=== PATIENT | male | born 1940 | race Caucasian/White ===

== ENCOUNTER → 2016-12-19 | Outpatient (CLI) | payer OTHER ==
[~2016-12-19] MED LIST: ZOCOR PO; [UNRECOGNIZED DRUG - REMARK]
--- NOTE | ~2016-12-19 | CT3 ---
[facility] A Service of [facility] RADIOLOGY TEXT RESULTS PATIENT: LENIN HAMMER LOCATION: [facility] : 36 UNIT #: [id number] AGE: [address]: Jay Jay Christopher MD SEX: M ORDER DR: [id number] [facility] [address] [place], [place] [address] [id number] O MR#: [id number] Acc #: [id number] NAME: LENIN HAMMER : 1940 SEX: M STUDY DATE/TIME: 12/19/2016 11:06 UNIT: CCAT ROOM: STUDY DESCRIPTION: CT Abd and Pelv WWo Cont Attending Physician: Jay Jay Christopher M.D. Referring Physician: Jay Jay Christopher M.D. Ordering Physician: Jay Jay Christopher M.D. Primary Care Physician: Brandon Maldonado M.D. MEDICAL IMAGING REPORT This report is preliminary unless electronic signature is present EXAM CT of the abdomen and pelvis without and with contrast, 12/19/2016. INDICATIONS Prostate cancer follow up. Hematuria 1 month ago. Prostate cancer diagnosed in 2005, status post prostatectomy. Status post radiation therapy. TECHNIQUE Noncontrast imaging of the abdomen and pelvis was performed followed by contrast-enhanced imaging of the abdomen and pelvis. COMPARISON 07/08/2016. The examination was performed as requested by the ordering physician. This CT exam was performed with one or more of the following radiation dose reduction techniques: automatic exposure control, adjustment of mA and/or kV according to patient size, and iterative reconstruction. FINDINGS NONCONTRAST CT ABDOMEN: Included lung bases demonstrate minimal atelectasis or scarring in the left lower lobe. No effusion. Aorta demonstrates atherosclerotic change. The patient is status post aortobiiliac stent graft repair of an abdominal aortic aneurysm. This extends from the level of the infrarenal abdominal aorta into the common iliac arteries bilaterally. No periaortic fluid collection. There is no hydronephrosis of either kidney. Tiny 1 mm nonobstructing stone in the lower pole left kidney. Ureters unremarkable. No suspicious calcifications elsewhere in the abdomen. STS. [facility] A Service of [facility] & [facility] RADIOLOGY TEXT RESULTS PATIENT: LENIN HAMMER LOCATION: [facility] : 36 UNIT #: [id number] AGE: [address]: Jay Jay Christopher MD SEX: M ORDER DR: NONCONTRAST CT PELVIS: No evidence of recently passed stone in the bladder. No suspicious calcifications in the pelvis. Appendix normal. CONTRAST ENHANCED ABDOMEN: No distinct evidence of enhancement within the aneurysm sac although this exam was not tailored specifically to evaluate for endoleak. No aortic dissection. Kidneys enhance symmetrically, and are otherwise unremarkable. Spleen, adrenal glands and pancreas are unremarkable. Mild fatty infiltration of the liver. Gallbladder normal. CT PELVIS: Wall thickening of the bladder base. This is nonspecific. Findings are similar to the prior study for technical factors. There is no focal bladder mass. Prostate is surgically absent. No drainable fluid collection in the pelvis or adenopathy. Incomplete rotation of the bowel with the majority of the bowel in the midline or to the right of midline, including the colon. Imaging features are unchanged. There is no inguinal adenopathy or fluid collection. There are degenerative changes in the lower lumbar spine. No suspicious bone lesion. IMPRESSION 1. Tiny nonobstructing stone in the left kidney. No hydronephrosis. No enhancing mass. 2. There is some nonspecific bladder wall thickening in a somewhat circumferential fashion. The findings are similar to the prior study for technical factors. 3. Status post aortobiiliac stent graft placement. No complicating features are evidence of endoleak clearly demonstrated. 4. Surgical absence of the prostate. 5. Appendix normal. Incidental fatty infiltration of the liver. Dictated by... Cirilo Villareal M.D. THIS IS AN ELECTRONICALLY VERIFIED REPORT Cirilo Villareal M.D. at 12/19/2016 4:50 PM TANGELA/buck TD: 12/19/2016 15:25 JOB #: [id number] MEDICAL IMAGING REPORT Page 1 of 1 COPY
[2016-12-19 11:06] LABS: POC - GFR >60.0 mL/min (>60)
== END | disposition home or self-care (01) ==
LOC: CLAB 10:09 → CCAT 10:09
PROVIDERS: Urology
DX: Z08 Encounter for follow-up examination after completed treatment for malignant neoplasm (principal); Z95.828 Presence of other vascular implants and grafts; Z90.89 Acquired absence of other organs; Z85.46 Personal history of malignant neoplasm of prostate; Z92.3 Personal history of irradiation
CPT/HCPCS: 36415; 74178; 82565; 84153; Q9967